=== PATIENT | male | born 1955 | race American Indian/Alaskan Native ===

== ENCOUNTER 2017-01-19 21:51 | Inpatient (IN) | payer SELFPAY ==
[2017-01-19] MEDS ORDERED: TYLENOL ONE (22:27)
[2017-01-19] MEDS ORDERED: NACL 0.9% 500 ML 500 ML IV ONE (22:30)
[2017-01-19] MEDS ORDERED: TYLENOL PO STA (22:30)
[2017-01-19] MEDS ORDERED: TYLENOL PO ONE (23:29)
[2017-01-19 23:37] LABS: Basophils % (Auto) 0.2 % (0.0-1.8); Eosinophils % (Auto) 0.3 % (0.0-4.3); Hematocrit 39.1 % (35.5-45.6); Hemoglobin 12.7 gm/dl (11.8-15.2); Mean Corpuscular HGB Conc 33 % (32-34); Mean Corpuscular Hemoglobin 27 pg (28-32); Mean Corpuscular Volume 83 fl (84-94); Red Cell Distribution Width 15.9 % (13.2-15.2); White Blood Count 3.3 K/mm3 (4.5-11.0)
[2017-01-19] MEDS ORDERED: MOTRIN ONE (23:38)
[2017-01-19 23:40] LABS: Bacteria,Urine 1+ /HPF (Negative); Bilirubin,Urine NEG (Negative); Blood,Urine SM (Negative); Ketones,Urine NEG (Negative); Leukocyte Esterase,Urine NEG (Negative); Mucus,Urine 1+ /HPF; Nitrite,Urine NEG (Negative)
[2017-01-19] MEDS ORDERED: MOTRIN PO ONE (23:40)
[2017-01-19 23:46] LABS: INR 1.09 (0.87-1.13)
[2017-01-19 23:50] LABS: Platelet Count 69 K/mm3 (140-440)
[2017-01-19 23:56] LABS: Albumin 3.4 g/dL (3.9-5); Albumin/Globulin Ratio 0.8 %; BUN/Creatinine Ratio 21.53; Bilirubin,Total 0.8 mg/dL (0.1-1.2); Calcium 9.4 mg/dL (8.4-10.2); Chloride 100.2 mmol/L (98-107); Potassium 3.4 mmol/L (3.6-5.0); Total Protein 7.9 g/dL (6.3-8.2)
[2017-01-20] MEDS ORDERED: NACL 0.9% 500 ML 500 ML IV ONE (00:36)
[2017-01-20] MEDS ORDERED: NACL 0.9% 1000 ML 1,000 ML ONE (00:48)
[2017-01-20] MEDS ORDERED: NACL 0.9% 1000 ML 1,000 ML IV ONE (01:05)
[2017-01-20] MEDS ORDERED: ZOSYN/NS 4.5GM/100ML 4.5 GM/100 ML VIAL IV ONE (01:19)
[2017-01-20] MEDS ORDERED: LACTATED RINGERS 1,000 ML IV ONE (01:22)
--- NOTE | 2017-01-20 01:22 | Emergency Department Report ---
ED Fever HPI - General Chief Complaint: Fever Stated Complaint: FEVER Time Seen by Provider: 01/20/17 00:34 - History of Present Illness Initial Comments: Patient is a 61-year-old male no significant past medical history who presents with high fever and malaise. That has been going on for the last 3 days. Patient states that he has some body aches there are 6 out of 10 nothing makes it better or worse. Patient also states that he's been very tired lately. He states that he went to after, in the last 60 days. And he did not take any antimalarial medication. He was recently seen by his PCP and given an antibiotic but he states that that has not helped his symptoms. He reports of having fevers as high as 10 3F that come and go. He also states that he cannot sleep at night. ED Review of Systems ROS: Stated complaint: FEVER Other details as noted in HPI Constitutional: chills, fever, malaise Eyes: denies: eye pain, eye discharge, vision change ENT: denies: ear pain, throat pain Respiratory: denies: cough, shortness of breath, wheezing Cardiovascular: denies: chest pain, palpitations Endocrine: no symptoms reported Gastrointestinal: denies: abdominal pain, nausea, diarrhea Genitourinary: denies: urgency, dysuria Musculoskeletal: myalgia Skin: denies: rash, lesions Neurological: denies: headache, weakness, paresthesias Psychiatric: denies: anxiety, depression Hematological/Lymphatic: denies: easy bleeding, easy bruising ED Past Medical Hx - Past Medical History Previous Medical History?: No - Surgical History Past Surgical History?: No - Social History Smoking Status: Never Smoker Substance Use Type: None ED Physical Exam - General Limitations: No Limitations General appearance: alert, in no apparent distress - Head Head exam: Present: atraumatic, normocephalic - Eye Eye exam: Present: normal appearance - ENT ENT exam: Present: mucous membranes moist - Neck Neck exam: Present: normal inspection - Respiratory Respiratory exam: Present: normal lung sounds bilaterally. Absent: respiratory distress - Cardiovascular Cardiovascular Exam: Present: regular rate, normal rhythm. Absent: systolic murmur, diastolic murmur, rubs, gallop - GI/Abdominal GI/Abdominal exam: Present: soft, normal bowel sounds - Rectal Rectal exam: Present: deferred - Extremities Exam Extremities exam: Present: normal inspection - Back Exam Back exam: Present: normal inspection - Neurological Exam Neurological exam: Present: alert, oriented X3, CN II-XII intact - Psychiatric Psychiatric exam: Present: normal affect, normal mood - Skin Skin exam: Present: diaphoretic ED Course Vital Signs 01/19/17 01/19/17 01/20/17 22:30 23:38 00:22 Temperature 103.0 F H 102.7 F H Pulse Rate 116 H 110 H 95 H Respiratory 20 20 14 Rate Blood Pressure 127/60 Blood Pressure 148/64 [Right] O2 Sat by Pulse 96 96 90 Oximetry 01/20/17 01/20/17 01/20/17 00:30 00:37 00:41 Temperature 100.1 F H Pulse Rate 94 H 92 H Respiratory 24 18 Rate Blood Pressure 117/62 117/62 Blood Pressure [Right] O2 Sat by Pulse 96 96 Oximetry 01/20/17 01/20/17 01/20/17 00:51 01:00 01:11 Temperature Pulse Rate 89 95 H 96 H Respiratory 17 13 24 Rate Blood Pressure 117/62 124/65 124/65 Blood Pressure [Right] O2 Sat by Pulse 98 99 98 Oximetry 01/20/17 01/20/17 01/20/17 01:21 01:30 01:41 Temperature Pulse Rate 92 H 87 88 Respiratory 14 25 H 27 H Rate Blood Pressure 128/64 122/62 122/62 Blood Pressure [Right] O2 Sat by Pulse 98 98 99 Oximetry 01/20/17 01/20/17 01/20/17 01:51 02:00 02:11 Temperature Pulse Rate 96 H 93 H 92 H Respiratory 29 H 24 22 Rate Blood Pressure 126/63 125/68 125/68 Blood Pressure [Right] O2 Sat by Pulse 98 98 98 Oximetry 01/20/17 01/20/17 01/20/17 02:21 02:24 02:30 Temperature 99.4 F Pulse Rate 87 85 Respiratory 21 19 Rate Blood Pressure 134/58 128/63 Blood Pressure [Right] O2 Sat by Pulse 97 97 Oximetry 01/20/17 01/20/17 01/20/17 02:41 02:51 03:00 Temperature Pulse Rate 84 86 85 Respiratory 21 26 H 23 Rate Blood Pressure 128/63 127/60 135/62 Blood Pressure [Right] O2 Sat by Pulse 97 98 98 Oximetry 08/10/0301/20/17 01/20/17 03:11 03:21 03:30 Temperature Pulse Rate 86 93 H 86 Respiratory 18 25 H 23 Rate Blood Pressure 135/62 119/71 113/71 Blood Pressure [Right] O2 Sat by Pulse 96 97 99 Oximetry 01/20/17 01/20/17 01/20/17 03:41 03:51 04:00 Temperature Pulse Rate 89 89 87 Respiratory 17 21 20 Rate Blood Pressure 113/71 123/69 117/70 Blood Pressure [Right] O2 Sat by Pulse 97 97 97 Oximetry 01/20/17 01/20/17 01/20/17 04:11 04:21 04:30 Temperature Pulse Rate 82 87 77 Respiratory 19 22 20 Rate Blood Pressure 117/70 127/63 120/66 Blood Pressure [Right] O2 Sat by Pulse 98 97 98 Oximetry 01/20/17 04:41 Temperature Pulse Rate 83 Respiratory 23 Rate Blood Pressure 120/66 Blood Pressure [Right] O2 Sat by Pulse 98 Oximetry - Reevaluation(s) Reevaluation #1: 01/20/17 02:38 patient is not in any pain he says he is doing fine. I have discussed the patient that due to his high fevers that he will need to be admitted. ED Medical Decision Making - Lab Data Result diagrams: 01/19/17 23:14 01/19/17 23:14 Laboratory Results - last 24 hr 01/19/17 01/19/17 01/19/17 22:54 23:14 23:14 WBC 3.3 L RBC 4.70 Hgb 12.7 Hct 39.1 MCV 83 L MCH 27 L MCHC 33 RDW 15.9 H Plt Count 69 L Lymph % (Auto) 15.3 [place] % (Auto) 11.7 H Eos % (Auto) 0.3 Baso % (Auto) 0.2 Lymph # 0.5 L [place] # 0.4 Eos # 0.0 Baso # 0.0 Seg Neutrophils % 72.5 H Seg Neutrophils # 2.4 PT 14.7 INR 1.09 VBG pH Sodium Potassium Chloride Carbon Dioxide Anion Gap BUN Creatinine Estimated GFR BUN/Creatinine Ratio Glucose Lactic Acid Calcium Total Bilirubin AST ALT Alkaline Phosphatase Total Protein Albumin Albumin/Globulin Ratio Urine Color Lauren Urine Turbidity Clear Urine pH 5.0 Ur Specific [place] 1.029 Urine Protein 100 mg/dl Urine Glucose (UA) Neg Urine Ketones Neg Urine Blood Sm Urine Nitrite Neg Urine Bilirubin Neg Urine Urobilinogen 4.0 Ur Leukocyte Esterase Neg Urine WBC (Auto) 6.0 Urine RBC (Auto) 6.0 U Epithel Cells (Auto) < 1.0 Urine Bacteria (Auto) 1+ Urine Mucus 1+ 01/19/17 01/19/17 01/19/17 23:14 23:14 23:14 WBC RBC Hgb Hct MCV MCH MCHC RDW Plt Count Lymph % (Auto) [place] % (Auto) Eos % (Auto) Baso % (Auto) Lymph # [place] # Eos # Baso # Seg Neutrophils % Seg Neutrophils # PT INR VBG pH 7.441 H Sodium 138 Potassium 3.4 L Chloride 100.2 Carbon Dioxide 22 Anion Gap 19 BUN 28 H Creatinine 1.3 Estimated GFR 56 BUN/Creatinine Ratio 21.53 Glucose 148 H Lactic Acid 1.20 Calcium 9.4 Total Bilirubin 0.80 AST 41 H ALT 29 Alkaline Phosphatase 67 Total Protein 7.9 Albumin 3.4 L Albumin/Globulin Ratio 0.8 Urine Color Urine Turbidity Urine pH Ur Specific [place] Urine Protein Urine Glucose (UA) Urine Ketones Urine Blood Urine Nitrite Urine Bilirubin Urine Urobilinogen Ur Leukocyte Esterase Urine WBC (Auto) Urine RBC (Auto) U Epithel Cells (Auto) Urine Bacteria (Auto) Urine Mucus 01/20/17 01:28 WBC RBC Hgb Hct MCV MCH MCHC RDW Plt Count Lymph % (Auto) [place] % (Auto) Eos % (Auto) Baso % (Auto) Lymph # [place] # Eos # Baso # Seg Neutrophils % Seg Neutrophils # PT INR VBG pH Sodium Potassium Chloride Carbon Dioxide Anion Gap BUN Creatinine Estimated GFR BUN/Creatinine Ratio Glucose Lactic Acid 0.90 Calcium Total Bilirubin AST ALT Alkaline Phosphatase Total Protein Albumin Albumin/Globulin Ratio Urine Color Urine Turbidity Urine pH Ur Specific [place] Urine Protein Urine Glucose (UA) Urine Ketones Urine Blood Urine Nitrite Urine Bilirubin Urine Urobilinogen Ur Leukocyte Esterase Urine WBC (Auto) Urine RBC (Auto) U Epithel Cells (Auto) Urine Bacteria (Auto) Urine Mucus - EKG Data 01/20/17 05:[address] segment elevation or T-wave inversion normal sinus rhythm - Radiology Data Chest x-ray shows no acute pulmonary disease - Medical Decision Making Chief medical diagnosis: Sepsis Differential [place]on diagnosis malaria, metabolic abnormality, pneumonia We'll get CBC CMP troponin chest x-ray blood cultures lactic acid, fluids and antibiotics patient will be admitted to the hospital. Critical Care Time: No Critical care attestation.: If time is entered above; I have spent that time in minutes in the direct care of this critically ill patient, excluding procedure time. ED Disposition Clinical Impression: Malaria Fever Qualifiers: Fever type: unspecified Qualified Code(s): R50.9 - Fever, unspecified Disposition: OP ADMIT IP TO THIS HOSP Is pt being admited?: Yes Does the pt Need Aspirin: No Condition: Stable Time of Disposition: 03:30
[2017-01-20] MEDS ORDERED: VANCOMYCIN/NS 1 GM/250 ML 1 GM/250 ML BAG IV SCH (02:00)
[2017-01-20] MEDS ORDERED: VANCOMYCIN 2,000 MG in NACL 0.9% 500 ML 500 ML IV ONE (02:00)
[2017-01-20] MEDS ORDERED: ZOFRAN IV PRN (04:27)
[2017-01-20] MEDS ORDERED: MILK OF MAGNESIA PO PRN (04:27)
[2017-01-20] MEDS ORDERED: DULCOLAX PR PRN (04:27)
--- NOTE | 2017-01-20 04:32 | History and Physical Report ---
History of Present Illness Date of examination: 01/20/17 History of present illness: 61-year-old man with no medical problem comes emergency room with complaints of high fever 1 week. Went to the primary care physician who gave him Motrin and Bactrim, his fever still persist, also complaining of chills. Patient has a recent travel to [place] one month ago, no sick contacts Constitutional: no weight loss Ears, eyes, nose, mouth and throat: no nasal congestion, no nasal discharge, no sinus pressure, no vision change, no red eye. Neck: No neck pain or rigidity. Cardiovascular: chest pain, no orthopnea, no palpitations, no leg swelling Respiratory: No shortness of breath, no cough, no congestion, no wheezing Gastrointestinal: abdominal pain, hematochezia, no nausea, no vomiting Genitourinary : no dysuria, frequency , no hematuria Musculoskeletal: no joint swelling or muscle ache Integumentary: no rash, no pruritis Neurological: no parathesias, no numbness, no focal weakness Endocrine: no cold or heat intolerance, no polyuria or polydipsia Hematologic/Lymphatic: no easy bruising, no easy bleeding, no gland swelling Allergic/Immunologic: no urticaria, no angioedema. PAST MEDICAL HISTORY: None PAST SURGICAL HISTORY: None FAMILY HISTORY: Hypertension SOCIAL HISTORY: Denies alcohol, tobacco, drugs Medications and Allergies Allergies Allergy/AdvReac Type Severity Reaction Status Date / Time No Known Allergies Allergy Verified 01/19/17 22:29 Home Medications Medication Instructions Recorded Confirmed Last Taken Type No Known Home Medications [No 01/20/17 01/20/17 Unknown History Reported Home Medications] Exam - Physical Exam Narrative exam: Gen. appearance: Patient lying in bed, no apparent distress HEENT: Normocephalic, atraumatic, pupils equally round and reactive to light, extraocular movement intact, and no sclericterus,. No JVD or thyromegaly or nodule,neck supple, no carotid bruit ,mucous membranes moist, no exudate or erythema Heart: S1, S2, regular rate and rhythm Lungs: Clear to auscultation bilaterally, breathing comfortable Abdomen: Positive bowel sounds, nontender, nondistended, no organomegaly Extremity: No edema, cyanosis, clubbing Skin: No rash, nodules, warm, dry Neuro: Oriented 3, cranial nerves II-12 intact, speech is fluent, motor and sensory intact - Constitutional Vitals: Temp Pulse Resp BP Pulse Ox 99.4 F 86 18 135/62 96 01/20/17 02:24 01/20/17 03:11 01/20/17 03:11 01/20/17 03:11 01/20/17 03:11 Results - Labs CBC & Chem 7: 01/19/17 23:14 01/19/17 23:14 Labs: Abnormal lab results 01/19/17 01/19/17 01/19/17 Range/Units 23:14 23:14 23:14 WBC 3.3 L (4.5-11.0) K/mm3 MCV 83 L (84-94) fl MCH 27 L (28-32) pg RDW 15.9 H (13.2-15.2) % Plt Count 69 L (140-440) K/mm3 [place] % (Auto) 11.7 H (0.0-7.3) % Lymph # 0.5 L (1.2-5.4) K/mm3 Seg Neutrophils % 72.5 H (40.0-70.0) % VBG pH 7.441 H (7.320-7.420) Potassium 3.4 L (3.6-5.0) mmol/L BUN 28 H (9-20) mg/dL Glucose 148 H (75-100) mg/dL AST 41 H (5-40) units/L Albumin 3.4 L (3.9-5) g/dL - Imaging and Cardiology Chest x-ray: image reviewed Assessment and Plan Assessment Fever most likely secondary to malaria Dehydration Hypokalemia Thrombocytopenia Plan Admit to medicine Start atovaquone, IV fluids, replete potassium Consult infectious disease DVT prophylaxis with SCD
[2017-01-20] MEDS ORDERED: K-DUR PO ONE (05:57)
--- NOTE | 2017-01-20 07:42 | XRay Report ---
ROUTINE CHEST, TWO VIEWS: HISTORY: Sepsis. The trachea, heart, mediastinal contour, lung baez and bony thorax are unremarkable. IMPRESSION: Unremarkable chest x-ray.
--- NOTE | 2017-01-20 08:32 | Admit Criteria Form ---
Admission Criteria Documentation: FEBRILE ILLNESS, WITHOUT FOCAL INFECTION Clinical Indications for Admission to Inpatient Care (Place 'X' for any and all applicable criteria): Admission is indicated for ANY ONE of the following (1)(2)(3): [ ] I. Bacteremia [ ]II. Suspected or identified specific infection requiring hospitalization (eg, meningitis, endocarditis) [ ]III. Hemodynamic instability [ ]IV. Altered mental status [ ]V. Failure or unavailability of outpatient antimicrobial treatment [ ]. Hypoxemia [ ]VII. Seizures [ ]VIII. High-risk febrile neutropenia [ ]IX. Need for parenteral antibiotic in patient who is likely to abuse vascular access device (eg, injection drug user) [A](7) [ ]X. Temperature greater than 104.9 degrees F (40.5 degrees C) (oral) [X ]XI. Inpatient admission required rather than observation care because of ANY ONE of the following: [ X]a) Specific infection identified that is too severe for outpatient treatment or observation care trial [ ]b) Metabolic disorder (eg, hypoglycemia, hyperglycemia, metabolic acidosis) that is severe or persistent [ ]c) Temperature greater than 103.1 degrees F (39.5 degrees C) ( oral) that is not responsive to observation care treatment [ ]d) IV fluid to replace significant ongoing (eg, for over 24 hours) losses (> 3 L/m2 per day) [ ]e) Supplemental oxygen or respiratory treatments for over 24 hours that is performable only in acute inpatient setting [ ]f) Parenteral nutrition regimen need that must be implemented on inpatient basis [ ]g) Strict or protective (eg, laminar flow) isolation [ ]h) Other condition, treatment or monitoring requiring inpatient admission Extended stay beyond goal length of stay may be needed for(1)(3) [ ]a) Sepsis or septic shock(22) [ ]b) Positive blood cultures [ ]c) Insufficient oral intake [ ]d) High-risk febrile neutropenia(29)(30) [ ]e) Continued fever and clinical instability [ ]f) Clinically active comorbid illness (e.g,heart failure, renal failure , diabetes) The original [facility] content created by [facility] [employer] has been revised. The portions of the content which have been revised are identified through the use of italic text or in bold, and [facility] has neither reviewed nor approved the modified material. All other unmodified content is copyright [facility]. Please see references footnoted in the original [facility] edition 2016 Admission Criteria Met: Yes
[2017-01-20] MEDS: MEPRON PO SCH ×2 (09:02→21:33)
[2017-01-20] MEDS: NACL 0.9% 1000 ML 1,000 ML IV SCH ×2 (09:02→20:49)
[2017-01-20] MEDS: PERCOCET 5/325 PO PRN (12:46)
--- NOTE | 2017-01-20 12:54 | Event Note ---
Date: 01/20/17 Patient admitted for fever, patient's from [place] and has been there one and half months ago and that his suspicions of the fever maybe secondary to malaria. ID consult is placed. Patient was admitted this morning, H&P reviewed , labs were reviewed. Patient is on atovauone.
--- NOTE | 2017-01-20 13:46 | Consultation ---
History of Present Illness - Reason for Consult Consult date: 01/20/17 Fever; suspect Malaria Requesting physician: [facility] - History of Present Illness Mr. Ruiz is a 61-year-old man with travel to [place], returning about 1 month ago, now with fever for ~1 week. Here has been febrile to 103 deg F. He has no history of malaria. Blood cultures are in progress. He is on treatment dose Mepron. ID consultation is requested for fever evaluation and recommendations on possible malaria treatment. Past History Past Medical History: No medical history Past Surgical History: No surgical history Social history: , other (originally from [place]) Medications and Allergies Allergies Allergy/AdvReac Type Severity Reaction Status Date / Time No Known Allergies Allergy Verified 01/19/17 22:29 Active Meds: Active Medications Acetaminophen (Tylenol) 650 mg PO Q4H PRN PRN Reason: Pain MILD(1-3)/Fever >100.5/BROWN Atovaquone (Mepron) 750 mg PO BID KENNETH Last Admin: 01/20/17 09:02 Dose: 750 mg Bisacodyl (Dulcolax) 10 mg IA QDAY PRN PRN Reason: Constipation unrelieved by MOM Sodium Chloride (Nacl 0.9% 1000 Ml) 1,000 mls @ 100 mls/hr IV DIRECT KENNETH Last Admin: 01/20/17 09:02 Dose: 100 mls/hr Magnesium Hydroxide (Milk Of Magnesia) 30 ml PO Q4H PRN PRN Reason: Constipation Ondansetron HCl (Zofran) 4 mg IV Q8H PRN PRN Reason: N/V unrelieved by Reglan Oxycodone/Acetaminophen (Percocet 5/325) 1 tab PO Q6H PRN PRN Reason: Pain, Moderate (4-6) Last Admin: 01/20/17 12:46 Dose: 1 tab Review of Systems All systems: negative Constitutional: fever, chills, weakness Eyes: bilateral: blurred vision (none) Cardiovascular: no chest pain, no palpitations, no shortness of breath Respiratory: no cough, no cough with sputum, no hemoptysis Gastrointestinal: no abdominal pain, no nausea, no vomiting, no diarrhea Genitourinary Male: no dysuria, no hematuria Musculoskeletal: no neck stiffness Integumentary: no rash, no pruritis, no jaundice Neurological: headaches Hematologic/Lymphatic: no lymphadenopathy Physical Examination - Constitutional Vitals: Vital Signs Temp Pulse Resp BP Pulse Ox 100.1 F H 88 18 136/63 94 01/20/17 08:00 01/20/17 08:00 01/20/17 08:00 01/20/17 08:00 01/20/17 13:11 Temperature -Last 24 Hours Temperature 100.1 F Temperature 98.2 F General appearance: Present: no acute distress, obese, other ( at bedside) - EENT Eyes: Absent: scleral icterus, conjunctival injection - Neck Neck: Present: supple - Respiratory Respiratory effort: normal Respiratory: bilateral: CTA - Cardiovascular Rhythm: regular Heart Sounds: Present: S1 & S2 - Extremities Extremities: No edema - Abdominal General gastrointestinal: Present: soft, non-tender, non-distended - Integumentary Integumentary: Present: clear. Absent: rash - Psychiatric Psychiatric: appropriate mood/affect - Neurologic Neurologic: CNII-XII intact, no focal deficits Results - Labs CBC & Chem 7: 01/19/17 23:14 01/19/17 23:14 Labs: Microbiology 01/19/17 23:14 Peripheral/Venous Blood Culture - Preliminary Culture in Progress 01/19/17 23:14 Peripheral/Venous Blood Culture - Preliminary Culture in Progress - Imaging and Cardiology Chest x-ray: report reviewed (unremarkable chest xray) Assessment and Plan - Patient Problems (1) Fever Current Visit: Yes Status: Acute Qualifiers: Fever type: unspecified Encounter type: E Qualified Code(s): R50.9 - Fever, unspecified Plan to address problem: 1. Possible malaria. Question if quiescent liver forms. 2. Quinine sulfate and Doxycycline for 7 days, with the possible addition of Primaquine 30mg PO daily if G6PD is normal and species requires it. 3. Await result of peripheral blood smear for evidence of parasites and plasmodium speciation. 4. Keep Atovaquone for now pending result of blood smear. Other parasitic illnesses than malaria are possible. 5. Await blood culture results. Screening also for HIV infection.
[2017-01-20] MEDS ORDERED: QUININE SULFATE PO SCH (14:00)
[2017-01-20] MEDS: VIBRAMYCIN PO SCH ×2 (14:59→21:33)
[2017-01-20 15:23] LABS: HIV-1 Antigen p24 Non React (Non React); HIVR-1/2 Ab Non React (Non React)
[2017-01-20] MEDS: TYLENOL PO PRN (21:32)
[2017-01-21 05:41] LABS: Mean Corpuscular HGB Conc 33 % (32-34); Mean Corpuscular Hemoglobin 27 pg (28-32); Mean Corpuscular Volume 81 fl (84-94); Red Blood Count 4.09 M/mm3 (3.65-5.03); White Blood Count 4.4 K/mm3 (4.5-11.0)
[2017-01-21 05:53] LABS: Platelet Count 64 K/mm3 (140-440)
[2017-01-21 06:13] LABS: Anion Gap 13 mmol/L; BUN/Creatinine Ratio 14.44; Blood Urea Nitrogen 13 mg/dL (9-20); Calcium 8.2 mg/dL (8.4-10.2); Carbon Dioxide 24 mmol/L (22-30); Chloride 103.5 mmol/L (98-107); Glucose 106 mg/dL (75-100); Potassium 3.4 mmol/L (3.6-5.0); Sodium 137 mmol/L (137-145)
[2017-01-21] MEDS: NACL 0.9% 1000 ML 1,000 ML IV SCH ×2 (07:22→17:04)
--- NOTE | 2017-01-21 07:25 | Progress Note ---
Assessment and Plan Assessment and plan: Fever - There is a suspicion of malaria because of travel history to [place] - Patient is on atovaquone and doxycycline - ID consult appreciated - Peripheral smear is pending - Culture preliminary result no growth DVT prophylaxis -Lovenox Disposition -Continue inpatient care History Interval history: Patient was seen and evaluated this morning, he has episodes of fever overnight. Hospitalist Physical - Physical exam Narrative exam: Not in cardiopulmonary distress. The patient is obese. Vital signs as documented. Head exam is unremarkable. No scleral icterus . Neck is without jugular venous distension, thyromegaly, or carotid bruits. Lungs are clear to auscultation. Cardiac exam reveals regular rate and Rhythm. Abdominal exam reveals normal bowel sounds, no masses, no organomegaly and no aortic enlargement. Extremities are nonedematous and both femoral and pedal pulses are normal. 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 No focal weakness. - Constitutional Vitals: Temp Pulse Resp BP Pulse Ox 99.6 F 71 18 143/67 96 01/21/17 04:00 01/21/17 04:00 01/21/17 04:00 01/21/17 04:00 01/21/17 00:00 General appearance: Present: no acute distress, obese, other ( at bedside) Results - Labs CBC & Chem 7: 01/21/17 04:22 01/21/17 04:22 Labs: Laboratory Last Values WBC 4.4 K/mm3 (4.5-11.0) L 01/21/17 04:22 RBC 4.09 M/mm3 (3.65-5.03) 01/21/17 04:22 Hgb 11.0 gm/dl (11.8-15.2) L 01/21/17 04:22 Hct 33.0 % (35.5-45.6) L D 01/21/17 04:22 MCV 81 fl (84-94) L 01/21/17 04:22 MCH 27 pg (28-32) L 01/21/17 04:22 MCHC 33 % (32-34) 01/21/17 04:22 RDW 16.0 % (13.2-15.2) H 01/21/17 04:22 Plt Count 64 K/mm3 (140-440) L 01/21/17 04:22 Lymph % (Auto) 15.3 % (13.4-35.0) 01/19/17 23:14 [place] % (Auto) Quality Assurance Supervisor Body 01/21/17 04:22 Eos % (Auto) 0.3 % (0.0-4.3) 01/19/17 23:14 Baso % (Auto) 0.2 % (0.0-1.8) 01/19/17 23:14 Lymph # 0.5 K/mm3 (1.2-5.4) L 01/19/17 23:14 [place] # 0.4 K/mm3 (0.0-0.8) 01/19/17 23:14 Eos # 0.0 K/mm3 (0.0-0.4) 01/19/17 23:14 Baso # 0.0 K/mm3 (0.0-0.1) 01/19/17 23:14 Seg Neutrophils % 72.5 % (40.0-70.0) H 01/19/17 23:14 Seg Neutrophils # 2.4 K/mm3 (1.8-7.7) 01/19/17 23:14 PT 14.7 Sec. (12.2-14.9) 01/19/17 23:14 INR 1.09 (0.87-1.13) 01/19/17 23:14 VBG pH 7.441 (7.320-7.420) H 01/19/17 23:14 Sodium 137 mmol/L (137-145) 01/21/17 04:22 Potassium 3.4 mmol/L (3.6-5.0) L 01/21/17 04:22 Chloride 103.5 mmol/L (98-107) 01/21/17 04:22 Carbon Dioxide 24 mmol/L (22-30) 01/21/17 04:22 Anion Gap 13 mmol/L 01/21/17 04:22 BUN 13 mg/dL (9-20) 01/21/17 04:22 Creatinine 0.9 mg/dL (0.8-1.5) 01/21/17 04:22 Estimated GFR > 60 ml/min 01/21/17 04:22 BUN/Creatinine Ratio 14.44 % 01/21/17 04:22 Glucose 106 mg/dL (75-100) H 01/21/17 04:22 Lactic Acid 0.90 mmol/L (0.7-2.0) 01/20/17 01:28 Calcium 8.2 mg/dL (8.4-10.2) L 01/21/17 04:22 Total Bilirubin 0.80 mg/dL (0.1-1.2) 01/19/17 23:14 AST 41 units/L (5-40) H 01/19/17 23:14 ALT 29 units/L (7-56) 01/19/17 23:14 Alkaline Phosphatase 67 units/L (35-129) 01/19/17 23:14 Total Protein 7.9 g/dL (6.3-8.2) 01/19/17 23:14 Albumin 3.4 g/dL (3.9-5) L 01/19/17 23:14 Albumin/Globulin Ratio 0.8 % 01/19/17 23:14 Urine Color Lauren (Yellow) 01/19/17 22:54 Urine Turbidity Clear (Clear) 01/19/17 22:54 Urine pH 5.0 (5.0-7.0) 01/19/17 22:54 Ur Specific [place] 1.029 (1.003-1.030) 01/19/17 22:54 Urine Protein 100 mg/dl mg/dL (Negative) 01/19/17 22:54 Urine Glucose (UA) Neg mg/dL (Negative) 01/19/17 22:54 Urine Ketones Neg mg/dL (Negative) 01/19/17 22:54 Urine Blood Sm (Negative) 01/19/17 22:54 Urine Nitrite Neg (Negative) 01/19/17 22:54 Urine Bilirubin Neg (Negative) 01/19/17 22:54 Urine Urobilinogen 4.0 mg/dL (<2.0) 01/19/17 22:54 Ur Leukocyte Esterase Neg (Negative) 01/19/17 22:54 Urine WBC (Auto) 6.0 /HPF (0.0-6.0) 01/19/17 22:54 Urine RBC (Auto) 6.0 /HPF (0.0-6.0) 01/19/17 22:54 U Epithel Cells (Auto) < 1.0 /HPF (0-13.0) 01/19/17 22:54 Urine Bacteria (Auto) 1+ /HPF (Negative) 01/19/17 22:54 Urine Mucus 1+ /HPF 01/19/17 22:54 HIV 1&2 Antibody Rapid Non react (Non React) 01/20/17 14:17 HIV P24 Antigen Non react (Non React) 01/20/17 14:17
[2017-01-21 07:28] LABS: Basophils % (Manual) 0 % (0.0-1.8); Blastocytes % (Manual) 0 %; Eosinophils % (Manual) 0 % (0.0-4.3)
[2017-01-21] MEDS ORDERED: K-DUR PO ONE ×2 (07:30→11:00)
[2017-01-21 07:31] LABS: Anisocytosis 1+; Diff Status Complete; Hypochromasia Few; Platelet Estimate Appears Decreased; Stomatocytes Few
[2017-01-21] MEDS: VIBRAMYCIN PO SCH ×2 (10:19→21:50)
[2017-01-21] MEDS: MEPRON PO SCH ×2 (10:19→21:49)
[2017-01-21] MEDS: QUININE SULFATE PO SCH ×3 (10:31→17:03)
--- NOTE | 2017-01-21 17:05 | Event Note ---
Date: 01/21/17 No new data from blood smears or other tests. Continue same management for now.
[2017-01-21] MEDS: TYLENOL PO PRN (17:13)
[2017-01-21] MEDS: LOVENOX SUB-Q SCH (21:50)
[2017-01-22] MEDS ORDERED: AMBIEN PO ONE (01:12)
[2017-01-22] MEDS: QUININE SULFATE PO SCH ×3 (01:25→16:59)
[2017-01-22 05:55] LABS: Hematocrit 33.1 % (35.5-45.6); Hemoglobin 10.9 gm/dl (11.8-15.2); Mean Corpuscular HGB Conc 33 % (32-34); Mean Corpuscular Hemoglobin 27 pg (28-32); Mean Corpuscular Volume 82 fl (84-94); Red Blood Count 4.06 M/mm3 (3.65-5.03); Red Cell Distribution Width 15.9 % (13.2-15.2); White Blood Count 5.7 K/mm3 (4.5-11.0)
[2017-01-22 05:57] LABS: Platelet Count 82 K/mm3 (140-440)
[2017-01-22 06:17] LABS: Anion Gap 13 mmol/L; Blood Urea Nitrogen 12 mg/dL (9-20); Calcium 8.8 mg/dL (8.4-10.2); Carbon Dioxide 27 mmol/L (22-30); Chloride 101.9 mmol/L (98-107); Glucose 81 mg/dL (75-100); Potassium 3.5 mmol/L (3.6-5.0); Sodium 138 mmol/L (137-145)
[2017-01-22] MEDS: NACL 0.9% 1000 ML 1,000 ML IV SCH ×2 (07:08→18:59)
[2017-01-22 08:48] LABS: Basophils % (Manual) 0 % (0.0-1.8); Blastocytes % (Manual) 0 %
[2017-01-22 08:49] LABS: Anisocytosis 1+; Diff Status Complete; Platelet Estimate Appears Decreased
--- NOTE | 2017-01-22 09:07 | Progress Note ---
Assessment and Plan Assessment and plan: Fever likely due to malaria because of recent travel to [facility]. he is on atovaquone and doxycycline. ID Physician following. Peripheral smear report pending. Hypokalemia. Potassium 3.5 today. Replace orally and recheck in the morning. DVT prophylaxis with Lovenox History Interval history: Fever yesterday, Recent travel to [facility] Hospitalist Physical - Physical exam Narrative exam: Gen appearance :Not in acute distress, obese HEENT: Normocephalic, atraumatic Neck: Supple, no JVD Lungs: Clear to auscultation bilaterally, no crackles, or wheezes. Heart: S1 and S2 regular, no murmurs, no gallops, rub Abdomen : Soft, nontender, non-distended, normal bowel sounds Extremities :No edema, no clubbing or cyanosis Neuro: Awake, alert, oriented 3, normal speech, no focal neurological signs Psych: normal mood. - Constitutional Vitals: Temp Pulse Resp BP Pulse Ox 98.6 F 78 20 174/103 97 01/22/17 08:00 01/22/17 08:00 01/22/17 08:00 01/22/17 08:00 01/22/17 08:00 General appearance: Present: no acute distress, obese, other ( at bedside) Results - Labs CBC & Chem 7: 01/22/17 05:29 01/22/17 05:29 Labs: Laboratory Last Values WBC 5.7 K/mm3 (4.5-11.0) 01/22/17 05:29 RBC 4.06 M/mm3 (3.65-5.03) 01/22/17 05:29 Hgb 10.9 gm/dl (11.8-15.2) L 01/22/17 05:29 Hct 33.1 % (35.5-45.6) L 01/22/17 05:29 MCV 82 fl (84-94) L 01/22/17 05:29 MCH 27 pg (28-32) L 01/22/17 05:29 MCHC 33 % (32-34) 01/22/17 05:29 RDW 15.9 % (13.2-15.2) H 01/22/17 05:29 Plt Count 82 K/mm3 (140-440) L 01/22/17 05:29 Lymph % (Auto) 15.3 % (13.4-35.0) 01/19/17 23:14 [place] % (Auto) Strategic Accounts Manager 01/22/17 05:29 Eos % (Auto) 0.3 % (0.0-4.3) 01/19/17 23:14 Baso % (Auto) 0.2 % (0.0-1.8) 01/19/17 23:14 Lymph # 0.5 K/mm3 (1.2-5.4) L 01/19/17 23:14 [place] # 0.4 K/mm3 (0.0-0.8) 01/19/17 23:14 Eos # 0.0 K/mm3 (0.0-0.4) 01/19/17 23:14 Baso # 0.0 K/mm3 (0.0-0.1) 01/19/17 23:14 Add Manual Diff Complete 01/22/17 05:29 Total Counted 100 01/22/17 05:29 Seg Neutrophils % 72.5 % (40.0-70.0) H 01/19/17 23:14 Seg Neuts % (Manual) 59.0 % (40.0-70.0) 01/22/17 05:29 Band Neutrophils % 0 % 01/22/17 05:29 Lymphocytes % (Manual) 24.0 % (13.4-35.0) 01/22/17 05:29 Reactive Lymphs % (Man) 0 % 01/22/17 05:29 Monocytes % (Manual) 15.0 % (0.0-7.3) H 01/22/17 05:29 Eosinophils % (Manual) 1.0 % (0.0-4.3) 01/22/17 05:29 Basophils % (Manual) 0 % (0.0-1.8) 01/22/17 05:29 Metamyelocytes % 0 % 01/22/17 05:29 Myelocytes % 1.0 % 01/22/17 05:29 Promyelocytes % 0 % 01/22/17 05:29 Blast Cells % 0 % 01/22/17 05:29 Nucleated RBC % Not Reportable 01/22/17 05:29 Seg Neutrophils # 2.4 K/mm3 (1.8-7.7) 01/19/17 23:14 Seg Neutrophils # Man 3.4 K/mm3 (1.8-7.7) 01/22/17 05:29 Band Neutrophils # 0.0 K/mm3 01/22/17 05:29 Lymphocytes # (Manual) 1.4 K/mm3 (1.2-5.4) 01/22/17 05:29 Abs React Lymphs (Man) 0.0 K/mm3 01/22/17 05:29 Monocytes # (Manual) 0.9 K/mm3 (0.0-0.8) H 01/22/17 05:29 Eosinophils # (Manual) 0.1 K/mm3 (0.0-0.4) 01/22/17 05:29 Basophils # (Manual) 0.0 K/mm3 (0.0-0.1) 01/22/17 05:29 Metamyelocytes # 0.0 K/mm3 01/22/17 05:29 Myelocytes # 0.1 K/mm3 01/22/17 05:29 Promyelocytes # 0.0 K/mm3 01/22/17 05:29 Blast Cells # 0.0 K/mm3 01/22/17 05:29 WBC Morphology Not Reportable 01/22/17 05:29 Hypersegmented Neuts Not Reportable 01/22/17 05:29 Hyposegmented Neuts Not Reportable 01/22/17 05:29 Hypogranular Neuts Not Reportable 01/22/17 05:29 Smudge Cells Not Reportable 01/22/17 05:29 Toxic Granulation Not Reportable 01/22/17 05:29 Toxic Vacuolation Not Reportable 01/22/17 05:29 Dohle Bodies Not Reportable 01/22/17 05:29 Pelger-Huet Anomaly Not Reportable 01/22/17 05:29 Erwin Rods Not Reportable 01/22/17 05:29 Platelet Estimate Appears decreased 01/22/17 05:29 Clumped Platelets Not Reportable 01/22/17 05:29 Plt Clumps, EDTA Not Reportable 01/22/17 05:29 Large Platelets Not Reportable 01/22/17 05:29 Giant Platelets Not Reportable 01/22/17 05:29 Platelet Satelliting Not Reportable 01/22/17 05:29 Plt Morphology Comment Not Reportable 01/22/17 05:29 RBC Morphology Not Reportable 01/22/17 05:29 Dimorphic RBCs Not Reportable 01/22/17 05:29 Polychromasia Not Reportable 01/22/17 05:29 Hypochromasia Not Reportable 01/22/17 05:29 Poikilocytosis Not Reportable 01/22/17 05:29 Anisocytosis 1+ 01/22/17 05:29 Microcytosis Not Reportable 01/22/17 05:29 Macrocytosis Not Reportable 01/22/17 05:29 Spherocytes Not Reportable 01/22/17 05:29 Pappenheimer Bodies Not Reportable 01/22/17 05:29 Sickle Cells Not Reportable 01/22/17 05:29 Target Cells Not Reportable 01/22/17 05:29 Tear Drop Cells Not Reportable 01/22/17 05:29 Ovalocytes Not Reportable 01/22/17 05:29 Stomatocytes Few 01/21/17 04:22 Helmet Cells Not Reportable 01/22/17 05:29 [place] Bodies Not Reportable 01/22/17 05:29 [place] Rings Not Reportable 01/22/17 05:29 [place] Cells Not Reportable 01/22/17 05:29 Bite Cells Not Reportable 01/22/17 05:29 Crenated Cell Not Reportable 01/22/17 05:29 Elliptocytes Not Reportable 01/22/17 05:29 Acanthocytes (Spur) Not Reportable 01/22/17 05:29 Rouleaux Not Reportable 01/22/17 05:29 Hemoglobin C Crystals Not Reportable 01/22/17 05:29 Schistocytes Not Reportable 01/22/17 05:29 Malaria parasites Not Reportable 01/22/17 05:29 Prince Bodies Not Reportable 01/22/17 05:29 Hem Pathologist Commnt No 01/22/17 05:29 PT 14.7 Sec. (12.2-14.9) 01/19/17 23:14 INR 1.09 (0.87-1.13) 01/19/17 23:14 VBG pH 7.441 (7.320-7.420) H 01/19/17 23:14 Sodium 138 mmol/L (137-145) 01/22/17 05:29 Potassium 3.5 mmol/L (3.6-5.0) L 01/22/17 05:29 Chloride 101.9 mmol/L (98-107) 01/22/17 05:29 Carbon Dioxide 27 mmol/L (22-30) 01/22/17 05:29 Anion Gap 13 mmol/L 01/22/17 05:29 BUN 12 mg/dL (9-20) 01/22/17 05:29 Creatinine 0.8 mg/dL (0.8-1.5) 01/22/17 05:29 Estimated GFR > 60 ml/min 01/22/17 05:29 BUN/Creatinine Ratio 15.00 % 01/22/17 05:29 Glucose 81 mg/dL (75-100) 01/22/17 05:29 Lactic Acid 0.90 mmol/L (0.7-2.0) 01/20/17 01:28 Calcium 8.8 mg/dL (8.4-10.2) 01/22/17 05:29 Total Bilirubin 0.80 mg/dL (0.1-1.2) 01/19/17 23:14 AST 41 units/L (5-40) H 01/19/17 23:14 ALT 29 units/L (7-56) 01/19/17 23:14 Alkaline Phosphatase 67 units/L (35-129) 01/19/17 23:14 Total Protein 7.9 g/dL (6.3-8.2) 01/19/17 23:14 Albumin 3.4 g/dL (3.9-5) L 01/19/17 23:14 Albumin/Globulin Ratio 0.8 % 01/19/17 23:14 Urine Color Lauren (Yellow) 01/19/17 22:54 Urine Turbidity Clear (Clear) 01/19/17 22:54 Urine pH 5.0 (5.0-7.0) 01/19/17 22:54 Ur Specific [place] 1.029 (1.003-1.030) 01/19/17 22:54 Urine Protein 100 mg/dl mg/dL (Negative) 01/19/17 22:54 Urine Glucose (UA) Neg mg/dL (Negative) 01/19/17 22:54 Urine Ketones Neg mg/dL (Negative) 01/19/17 22:54 Urine Blood Sm (Negative) 01/19/17 22:54 Urine Nitrite Neg (Negative) 01/19/17 22:54 Urine Bilirubin Neg (Negative) 01/19/17 22:54 Urine Urobilinogen 4.0 mg/dL (<2.0) 01/19/17 22:54 Ur Leukocyte Esterase Neg (Negative) 01/19/17 22:54 Urine WBC (Auto) 6.0 /HPF (0.0-6.0) 01/19/17 22:54 Urine RBC (Auto) 6.0 /HPF (0.0-6.0) 01/19/17 22:54 U Epithel Cells (Auto) < 1.0 /HPF (0-13.0) 01/19/17 22:54 Urine Bacteria (Auto) 1+ /HPF (Negative) 01/19/17 22:54 Urine Mucus 1+ /HPF 01/19/17 22:54 HIV 1&2 Antibody Rapid Non react (Non React) 01/20/17 14:17 HIV P24 Antigen Non react (Non React) 01/20/17 14:17
[2017-01-22] MEDS: MEPRON PO SCH ×2 (09:51→21:40)
[2017-01-22] MEDS: VIBRAMYCIN PO SCH ×2 (09:51→21:40)
[2017-01-22] MEDS: K-DUR PO SCH ×2 (09:57→16:58)
[2017-01-22] MEDS: LOVENOX SUB-Q SCH (21:40)
[2017-01-22] MEDS: PERCOCET 5/325 PO PRN (21:40)
[2017-01-23] MEDS: QUININE SULFATE PO SCH ×3 (01:19→17:30)
[2017-01-23] MEDS: TYLENOL PO PRN ×2 (04:40→19:50)
[2017-01-23 07:14] LABS: Anion Gap 17 mmol/L; Blood Urea Nitrogen 9 mg/dL (9-20); Calcium 9.1 mg/dL (8.4-10.2); Carbon Dioxide 23 mmol/L (22-30); Chloride 102.2 mmol/L (98-107); Glucose 95 mg/dL (75-100); Potassium 4.2 mmol/L (3.6-5.0); Sodium 138 mmol/L (137-145)
--- NOTE | 2017-01-23 09:25 | Progress Note ---
Assessment and Plan - Patient Problems (1) Fever Current Visit: Yes Status: Acute Qualifiers: Fever type: unspecified Encounter type: E Qualified Code(s): R50.9 - Fever, unspecified Plan to address problem: 1. Incomplete data toward malaria diagnosis. Being treated presumptively. Subjective Date of service: 01/23/17 Principal diagnosis: Fever; Malaria Interval history: Low-grade temps. Objective - Constitutional Vitals: Vital Signs Temp Pulse Resp BP Pulse Ox 99.4 F 87 20 164/90 98 01/23/17 07:32 01/23/17 07:32 01/23/17 07:32 01/23/17 07:32 01/23/17 07:32 Temperature -Last 24 Hours Temperature 99.4 F Temperature 100.3 F Temperature 98.7 F - Labs CBC & Chem 7: 01/22/17 05:29 01/23/17 05:40 Labs: Microbiology 01/19/17 23:14 Peripheral/Venous Blood Culture - Preliminary NO GROWTH AFTER 72 HOURS 01/19/17 23:14 Peripheral/Venous Blood Culture - Preliminary NO GROWTH AFTER 72 HOURS 01/19/17 22:57 Urine,Clean Catch Urine Culture - Final
[2017-01-23] MEDS: VIBRAMYCIN PO SCH ×2 (09:59→21:45)
[2017-01-23] MEDS: PERCOCET 5/325 PO PRN (09:59)
[2017-01-23] MEDS: NORVASC PO SCH (09:59)
[2017-01-23] MEDS: MEPRON PO SCH ×2 (10:00→21:45)
--- NOTE | 2017-01-23 10:00 | Progress Note ---
Assessment and Plan Assessment and plan: Fever likely due to malaria because of recent travel to [place]. He is on Atovaquone and Doxycycline. Peripheral smear report still pending. ID Physician following. Malaria, clinically. Hypokalemia. Now resolved after replacement. Potassium 4.2 today. DVT prophylaxis with Lovenox History Interval history: Still having fever Recent travel to [facility] generalized weakness Hospitalist Physical - Physical exam Narrative exam: Gen appearance :Not in acute distress, obese HEENT: Normocephalic, atraumatic Neck: Supple, no JVD Lungs: Clear to auscultation bilaterally, no crackles, or wheezes. Heart: S1 and S2 regular, no murmurs, no gallops,no rub Abdomen : Soft, non-tender, non-distended, normal bowel sounds Extremities :No edema, no clubbing or cyanosis Neuro: Awake, alert, oriented 3, normal speech, no focal neurological signs Psych: normal mood. - Constitutional Vitals: Temp Pulse Resp BP Pulse Ox 99.4 F 80 20 160/90 98 01/23/17 07:32 01/23/17 09:59 01/23/17 07:32 01/23/17 09:59 01/23/17 07:32 General appearance: Present: no acute distress, obese, other ( at bedside) Results - Labs CBC & Chem 7: 01/22/17 05:29 01/23/17 05:40 Labs: Laboratory Last Values WBC 5.7 K/mm3 (4.5-11.0) 01/22/17 05:29 RBC 4.06 M/mm3 (3.65-5.03) 01/22/17 05:29 Hgb 10.9 gm/dl (11.8-15.2) L 01/22/17 05:29 Hct 33.1 % (35.5-45.6) L 01/22/17 05:29 MCV 82 fl (84-94) L 01/22/17 05:29 MCH 27 pg (28-32) L 01/22/17 05:29 MCHC 33 % (32-34) 01/22/17 05:29 RDW 15.9 % (13.2-15.2) H 01/22/17 05:29 Plt Count 82 K/mm3 (140-440) L 01/22/17 05:29 Lymph % (Auto) 15.3 % (13.4-35.0) 01/19/17 23:14 [place] % (Auto) Property Loss Insurance Claim Adjuster 01/22/17 05:29 Eos % (Auto) 0.3 % (0.0-4.3) 01/19/17 23:14 Baso % (Auto) 0.2 % (0.0-1.8) 01/19/17 23:14 Lymph # 0.5 K/mm3 (1.2-5.4) L 01/19/17 23:14 [place] # 0.4 K/mm3 (0.0-0.8) 01/19/17 23:14 Eos # 0.0 K/mm3 (0.0-0.4) 01/19/17 23:14 Baso # 0.0 K/mm3 (0.0-0.1) 01/19/17 23:14 Add Manual Diff Complete 01/22/17 05:29 Total Counted 100 01/22/17 05:29 Seg Neutrophils % 72.5 % (40.0-70.0) H 01/19/17 23:14 Seg Neuts % (Manual) 59.0 % (40.0-70.0) 01/22/17 05:29 Band Neutrophils % 0 % 01/22/17 05:29 Lymphocytes % (Manual) 24.0 % (13.4-35.0) 01/22/17 05:29 Reactive Lymphs % (Man) 0 % 01/22/17 05:29 Monocytes % (Manual) 15.0 % (0.0-7.3) H 01/22/17 05:29 Eosinophils % (Manual) 1.0 % (0.0-4.3) 01/22/17 05:29 Basophils % (Manual) 0 % (0.0-1.8) 01/22/17 05:29 Metamyelocytes % 0 % 01/22/17 05:29 Myelocytes % 1.0 % 01/22/17 05:29 Promyelocytes % 0 % 01/22/17 05:29 Blast Cells % 0 % 01/22/17 05:29 Nucleated RBC % Not Reportable 01/22/17 05:29 Seg Neutrophils # 2.4 K/mm3 (1.8-7.7) 01/19/17 23:14 Seg Neutrophils # Man 3.4 K/mm3 (1.8-7.7) 01/22/17 05:29 Band Neutrophils # 0.0 K/mm3 01/22/17 05:29 Lymphocytes # (Manual) 1.4 K/mm3 (1.2-5.4) 01/22/17 05:29 Abs React Lymphs (Man) 0.0 K/mm3 01/22/17 05:29 Monocytes # (Manual) 0.9 K/mm3 (0.0-0.8) H 01/22/17 05:29 Eosinophils # (Manual) 0.1 K/mm3 (0.0-0.4) 01/22/17 05:29 Basophils # (Manual) 0.0 K/mm3 (0.0-0.1) 01/22/17 05:29 Metamyelocytes # 0.0 K/mm3 01/22/17 05:29 Myelocytes # 0.1 K/mm3 01/22/17 05:29 Promyelocytes # 0.0 K/mm3 01/22/17 05:29 Blast Cells # 0.0 K/mm3 01/22/17 05:29 WBC Morphology Not Reportable 01/22/17 05:29 Hypersegmented Neuts Not Reportable 01/22/17 05:29 Hyposegmented Neuts Not Reportable 01/22/17 05:29 Hypogranular Neuts Not Reportable 01/22/17 05:29 Smudge Cells Not Reportable 01/22/17 05:29 Toxic Granulation Not Reportable 01/22/17 05:29 Toxic Vacuolation Not Reportable 01/22/17 05:29 Dohle Bodies Not Reportable 01/22/17 05:29 Pelger-Huet Anomaly Not Reportable 01/22/17 05:29 Erwin Rods Not Reportable 01/22/17 05:29 Platelet Estimate Appears decreased 01/22/17 05:29 Clumped Platelets Not Reportable 01/22/17 05:29 Plt Clumps, EDTA Not Reportable 01/22/17 05:29 Large Platelets Not Reportable 01/22/17 05:29 Giant Platelets Not Reportable 01/22/17 05:29 Platelet Satelliting Not Reportable 01/22/17 05:29 Plt Morphology Comment Not Reportable 01/22/17 05:29 RBC Morphology Not Reportable 01/22/17 05:29 Dimorphic RBCs Not Reportable 01/22/17 05:29 Polychromasia Not Reportable 01/22/17 05:29 Hypochromasia Not Reportable 01/22/17 05:29 Poikilocytosis Not Reportable 01/22/17 05:29 Anisocytosis 1+ 01/22/17 05:29 Microcytosis Not Reportable 01/22/17 05:29 Macrocytosis Not Reportable 01/22/17 05:29 Spherocytes Not Reportable 01/22/17 05:29 Pappenheimer Bodies Not Reportable 01/22/17 05:29 Sickle Cells Not Reportable 01/22/17 05:29 Target Cells Not Reportable 01/22/17 05:29 Tear Drop Cells Not Reportable 01/22/17 05:29 Ovalocytes Not Reportable 01/22/17 05:29 Stomatocytes Few 01/21/17 04:22 Helmet Cells Not Reportable 01/22/17 05:29 Chong-[place] Bodies Not Reportable 01/22/17 05:29 [place] Rings Not Reportable 01/22/17 05:29 [place] Cells Not Reportable 01/22/17 05:29 Bite Cells Not Reportable 01/22/17 05:29 Crenated Cell Not Reportable 01/22/17 05:29 Elliptocytes Not Reportable 01/22/17 05:29 Acanthocytes (Spur) Not Reportable 01/22/17 05:29 Rouleaux Not Reportable 01/22/17 05:29 Hemoglobin C Crystals Not Reportable 01/22/17 05:29 Schistocytes Not Reportable 01/22/17 05:29 Malaria parasites Not Reportable 01/22/17 05:29 Prince Bodies Not Reportable 01/22/17 05:29 Hem Pathologist Commnt No 01/22/17 05:29 PT 14.7 Sec. (12.2-14.9) 01/19/17 23:14 INR 1.09 (0.87-1.13) 01/19/17 23:14 VBG pH 7.441 (7.320-7.420) H 01/19/17 23:14 Sodium 138 mmol/L (137-145) 01/23/17 05:40 Potassium 4.2 mmol/L (3.6-5.0) 01/23/17 05:40 Chloride 102.2 mmol/L (98-107) 01/23/17 05:40 Carbon Dioxide 23 mmol/L (22-30) 01/23/17 05:40 Anion Gap 17 mmol/L 01/23/17 05:40 BUN 9 mg/dL (9-20) 01/23/17 05:40 Creatinine 0.9 mg/dL (0.8-1.5) 01/23/17 05:40 Estimated GFR > 60 ml/min 01/23/17 05:40 BUN/Creatinine Ratio 10.00 % 01/23/17 05:40 Glucose 95 mg/dL (75-100) 01/23/17 05:40 Lactic Acid 0.90 mmol/L (0.7-2.0) 01/20/17 01:28 Calcium 9.1 mg/dL (8.4-10.2) 01/23/17 05:40 Total Bilirubin 0.80 mg/dL (0.1-1.2) 01/19/17 23:14 AST 41 units/L (5-40) H 01/19/17 23:14 ALT 29 units/L (7-56) 01/19/17 23:14 Alkaline Phosphatase 67 units/L (35-129) 01/19/17 23:14 Total Protein 7.9 g/dL (6.3-8.2) 01/19/17 23:14 Albumin 3.4 g/dL (3.9-5) L 01/19/17 23:14 Albumin/Globulin Ratio 0.8 % 01/19/17 23:14 Urine Color Lauren (Yellow) 01/19/17 22:54 Urine Turbidity Clear (Clear) 01/19/17 22:54 Urine pH 5.0 (5.0-7.0) 01/19/17 22:54 Ur Specific [place] 1.029 (1.003-1.030) 01/19/17 22:54 Urine Protein 100 mg/dl mg/dL (Negative) 01/19/17 22:54 Urine Glucose (UA) Neg mg/dL (Negative) 01/19/17 22:54 Urine Ketones Neg mg/dL (Negative) 01/19/17 22:54 Urine Blood Sm (Negative) 01/19/17 22:54 Urine Nitrite Neg (Negative) 01/19/17 22:54 Urine Bilirubin Neg (Negative) 01/19/17 22:54 Urine Urobilinogen 4.0 mg/dL (<2.0) 01/19/17 22:54 Ur Leukocyte Esterase Neg (Negative) 01/19/17 22:54 Urine WBC (Auto) 6.0 /HPF (0.0-6.0) 01/19/17 22:54 Urine RBC (Auto) 6.0 /HPF (0.0-6.0) 01/19/17 22:54 U Epithel Cells (Auto) < 1.0 /HPF (0-13.0) 01/19/17 22:54 Urine Bacteria (Auto) 1+ /HPF (Negative) 01/19/17 22:54 Urine Mucus 1+ /HPF 01/19/17 22:54 HIV 1&2 Antibody Rapid Non react (Non React) 01/20/17 14:17 HIV P24 Antigen Non react (Non React) 01/20/17 14:17
--- NOTE | 2017-01-23 11:32 | Progress Note ---
Assessment and Plan - Patient Problems (1) Fever Current Visit: Yes Status: Acute Qualifiers: Fever type: unspecified Encounter type: E Qualified Code(s): R50.9 - Fever, unspecified Plan to address problem: 1. Presumptive malaria treatment. 2. Can continue this same management of Quinine/ Doxycycline orally on an outpatient basis to complete a 7-day course. 3. Blood and urine cultures remain negative. Subjective Date of service: 01/23/17 Principal diagnosis: Fever; Malaria Interval history: Continued headache and fatigue. Headache controlled moderately with Tylenol. Objective - Constitutional Vitals: Vital Signs Temp Pulse Resp BP Pulse Ox 99.4 F 80 20 160/90 98 01/23/17 07:32 01/23/17 09:59 01/23/17 07:32 01/23/17 09:59 01/23/17 07:32 Temperature -Last 24 Hours Temperature 99.4 F Temperature 100.3 F Temperature 98.7 F General appearance: Present: well-nourished, obese - Neck Neck: supple - Respiratory Respiratory effort: normal Respiratory: bilateral: CTA - Cardiovascular Rhythm: regular Heart Sounds: Present: S1 & S2 Extremities: No edema - Gastrointestinal General gastrointestinal: Present: soft, non-distended - Integumentary Integumentary: no rash - Neurologic Neurologic: no focal deficits - Psychiatric Psychiatric: appropriate mood/affect - Labs CBC & Chem 7: 01/22/17 05:29 01/23/17 05:40 Labs: Microbiology 01/19/17 23:14 Blood - Peripheral/Venous Parasite Direct Smear - Final 01/19/17 23:14 Peripheral/Venous Blood Culture - Preliminary NO GROWTH AFTER 72 HOURS 01/19/17 23:14 Peripheral/Venous Blood Culture - Preliminary NO GROWTH AFTER 72 HOURS 01/19/17 22:57 Urine,Clean Catch Urine Culture - Final Blood Smear - no parasites seen
[2017-01-23] MEDS: NACL 0.9% 1000 ML 1,000 ML IV SCH ×2 (11:45→21:45)
[2017-01-23] MEDS: LOVENOX SUB-Q SCH (21:45)
[2017-01-23] MEDS ORDERED: AMBIEN PO ONE (22:46)
[2017-01-24] MEDS: QUININE SULFATE PO SCH ×2 (02:05→09:49)
[2017-01-24] MEDS: TYLENOL PO PRN (07:15)
--- NOTE | 2017-01-24 09:31 | Discharge Summary ---
Providers - Providers Date of Admission: 01/20/17 04:27 Date of discharge: 01/24/17 Attending physician: ZENON GALEANA Primary care physician: BOX PRINTER Hospitalization Condition: Stable Hospital course: Mr. Ruiz is a 61-year-old man who traveled to [facility], returning about 1 month ago, now with fever for ~1 week. he presented with fever of 103 deg F. He has no history of malaria. Blood cultures were negative. He was placed on treatment dose Mepron. ID consultation requested for fever evaluation and recommendations on possible malaria treatment. ID recommended to place on quinine and doxycyclin for one week. He was discharge home in stable condition and he will f/u with Dr. Stein outpt. Discharge diagnosis and management: Fever - likely due to malaria because of recent travel to [facility]. - He was placed on Atovaquone and Doxycycline. - Peripheral smear report still pending. - will follow with ID Physician outpt - will complete abx (quinine and doxycyclin) for malaria for one week. Hypokalemia. - Now resolved after replacement. Potassium 4.2 Hypertension, uncontrolled - cont norvasc and hydralazine Disposition: DC-01 TO HOME OR SELFCARE Time spent for discharge: 32 minutes Core Measure Documentation - Palliative Care Palliative Care/ Comfort Measures: Not Applicable - Core Measures Any of the following diagnoses?: none Exam - Constitutional Vitals: Temp Pulse Resp BP Pulse Ox 99 F 80 18 174/89 95 01/24/17 07:05 01/24/17 07:05 01/24/17 07:05 01/24/17 07:05 01/24/17 07:05 General appearance: Present: no acute distress, well-nourished - EENT Eyes: Present: PERRL ENT: hearing intact, clear oral mucosa - Neck Neck: Present: supple, normal ROM - Respiratory Respiratory effort: normal Respiratory: bilateral: CTA - Cardiovascular Heart Sounds: Present: S1 & S2. Absent: rub, click - Extremities Extremities: pulses symmetrical, No edema Peripheral Pulses: within normal limits - Abdominal General gastrointestinal: Present: soft, non-tender, non-distended, normal bowel sounds - Integumentary Integumentary: Present: clear, warm, dry - Musculoskeletal Musculoskeletal: gait normal, strength equal bilaterally - Psychiatric Psychiatric: appropriate mood/affect, intact judgment & insight - Neurologic Neurologic: CNII-XII intact, moves all extremities Plan Activity: advance as tolerated Weight Bearing Status: Weight Bear as Tolerated Diet: regular Follow up with: PRIMARY CARE, [Primary Care Provider] - 3-5 Days Prescriptions: amLODIPine [Norvasc] 5 mg PO QDAY #30 tablet Doxycycline [Vibramycin CAP] 100 mg PO BID #8 capsule hydrALAZINE [Apresoline TAB] 50 mg PO Q8HR #90 tab Quinine Sulfate (Nf) 648 mg PO Q8H #12 capsule
[2017-01-24] MEDS: VIBRAMYCIN PO SCH (09:48)
[2017-01-24] MEDS: MEPRON PO SCH (09:49)
[2017-01-24] MEDS: NORVASC PO SCH (09:49)
[2017-01-24] MEDS: APRESOLINE PO SCH ×2 (09:50→13:56)
[2017-01-24] MEDS ORDERED: APRESOLINE IV ONE (12:20)
[2017-01-24 13:57] VITALS: BP 169/78
== END 2017-01-24 14:15 | disposition home or self-care (01) | DRG 864 ==
LOC: ED 21:51 → 3A 01-20 04:27
PROVIDERS: ADMIT Internal Medicine; ATTEND Internal Medicine
DX: R50.9 Fever, unspecified (principal); B54 Unspecified malaria; E86.0 Dehydration; E87.6 Hypokalemia; D69.6 Thrombocytopenia, unspecified; I10 Essential (primary) hypertension; Z82.49 Family history of ischemic heart disease and other diseases of the circulatory system
CPT/HCPCS: 36415; 71010; 80048; 80053; 81001; 82140; 82805; 82955; 85007; 85025; 85610; 87040; 87086; 87207; 87806; 93005; 93010; 96361; 96365; 96366; 96367; J0360; J1650; J2543; J3370; J7030; J7040; J7120